=== PATIENT | male | born 1945 | race Caucasian/White ===

== ENCOUNTER 2020-04-20 14:18 | Outpatient (CLI) | payer MEDICARE, SELFPAY ==
--- NOTE | ~2020-04-20 | XR_ITS ---
EXAMINATION: XR abdomen/kub 1V INDICATION: Gross hematuria, history of bladder cancer TECHNIQUE: Supine views of the abdomen were obtained on 2 radiographs. COMPARISON: 09/11/2018 FINDINGS: Surgical changes are noted in the pelvis and right mid abdomen. No abnormal calcifications are identified. The bowel gas pattern is normal. There is mild hip osteoarthritis. No dilated loops o f bowel are evident. No abnormal calcifications are identified. IMPRESSION: 1. No radiographic correlate for the patient's symptoms. Reviewed, dictated and finalized at location A.
== END 2020-04-20 14:19 | disposition home or self-care (01) ==
LOC: ANHIMG 14:23
PROVIDERS: PCP Family Medicine; Visit Provider Urology
DX: R31.0 Gross hematuria (principal)
CPT/HCPCS: 74018

== ENCOUNTER 2020-04-22 07:26 | Outpatient (CLI) | payer MEDICARE, SELFPAY ==
--- NOTE | ~2020-04-22 | XR_ITS ---
XR abdomen/kub 1V 04/22/2020 07:45 Indication: Gross hematuria Procedure: KUB Comparison: 04/20/2020 Findings: Bowel gas pattern is nonobstructive. There are surgical clips in the right mid abdomen and pelvis. Lung bases are unremarkable. Moderate lumbar spondylosis. No acute osseous abnormality. No ab normal calcifications. Impression: 1: No acute abdominal abnormality. Reviewed, dictated and finalized at location B. Impression: 1: No acute abdominal abnormality.
--- NOTE | ~2020-04-22 | CT_ITS ---
EXAMINATION: CT abdomen pelvis wo/w con DATE: 04/22/2020 08:12 INDICATION: Gross hematuria TECHNIQUE: Computed tomography (CT) of the head was performed without and with 130 cc Omnipaque 350 i ntravenous contrast. The dose-length product was 2005.65 mGy-cm. Automated exposure control and itera tive reconstruction technique were employed. COMPARISON: CT dated 09/11/2018 FINDINGS: Lung bases are unremarkable. Heart size normal. 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 There are gallstones. There are calcified granulomas of the spleen. There is a punctate 2 mm nonobstr ucting left renal stone. Status post cystectomy with ileal diversion. Nonobstructive bowel gas patter n. Moderate colonic fecal loading. Fatty infiltration of the liver. Small subcentimeter hypodensity o f the right hepatic lobe, most likely benign. Calcified granulomas of the spleen. There are degenerat torsten changes of the hips. There is a duodenal diverticulum. IMPRESSION: 1. Punctate 2 mm nonobstructing left renal stone. 2: Cholelithiasis. Reviewed, dictated and finalized at location B.
[2020-04-22 07:55] LABS: Estimated Glomerular Filt Rate 49
== END 2020-04-22 07:27 | disposition home or self-care (01) ==
PROVIDERS: PCP Family Medicine; Visit Provider Urology
DX: R31.0 Gross hematuria (principal); K80.20 Calculus of gallbladder without cholecystitis without obstruction; N20.0 Calculus of kidney
CPT/HCPCS: 74018; 74178; Q9967